=== PATIENT | female | born 1990 | race Caucasian/White ===

== ENCOUNTER 2017-03-02 17:25 | Emergency (ER) | payer SELFPAY ==
[~2017-03-02] VITALS: Ht 167.6 cm; Wt 79.4 kg
[2017-03-02 18:05] LABS: BASOPHILS # (AUTO) 0.1 /CMM (0.0-0.2); BASOPHILS % (AUTO) 0.7 % (0.0-2.0); EOSINOPHILS # (AUTO) 0.3 /CMM (0.0-0.7); EOSINOPHILS % (AUTO) 2.9 % (0.0-6.0); HEMATOCRIT 38 % (33-45); HEMOGLOBIN 12.4 g/dL (11.5-14.8); LYMPHOCYTES # (AUTO) 2.1 /CMM (0.8-4.8); LYMPHOCYTES % (AUTO) 22.6 % (20.0-44.0); MEAN CORPUSCULAR HEMOGLOBIN 24 PG (26.0-33.0); MEAN CORPUSCULAR HGB CONC 33 g/dl (31.0-36.0); MEAN CORPUSCULAR VOLUME 75 fL (82-100); MONOCYTES # (AUTO) 0.3 /CMM (0.1-1.30); NEUTROPHILS # (AUTO) 6.7 /CMM (1.8-8.9); NEUTROPHILS % (AUTO) 70.8 % (43.0-81.0); PLATELET COUNT (AUTO) 307 /CMM (150-450); RDW COEFFICIENT OF VARIATION 13.8 (11.5-15.0); WHITE BLOOD COUNT (AUTO) 9.5 K/uL (4.3-11.0)
[2017-03-02 18:08] LABS: CALCIUM, SERUM 9.1 mg/dL (8.5-10.1); CREATININE 0.9 mg/dL (0.6-1.3)
[2017-03-02 18:10] LABS: INR 0.93 (0.87-1.13); PROTHROMBIN TIME 9.7 SECS (9.5-12.7)
--- NOTE | 2017-03-02 18:26 | NUR ---
PT REC'D TO ER C/O BLOOD IN URINE PAIN07/11 SPEAKS TELUGU VSS
[2017-03-02 18:49] LABS: APPEARANCE,URINE Turbid (CLEAR); BILIRUBIN,URINE Negative (NEGATIVE); BLOOD, URINE Large Ery/uL (NEGATIVE); COLOR,URINE Red (YELLOW); KETONES,URINE Negative (NEGATIVE); LEUKOCYTE ESTERASE ,URINE Small (NEGATIVE); NITRITE, URINE Positive (NEGATIVE); PROTEIN,URINE >=300 mg/dl (NEGATIVE); UGLUCOSE >=1000 mg/dL (NEGATIVE); UROBILINOGEN,URINE 0.2 EU/dL (0.2)
[2017-03-02 18:53] LABS: ADD URINE CULTURE YES; BACTERIA,URINE None seen /HPF (None Seen); PREGNANCY TEST URINE QUAL NEGATIVE (NEGATIVE); RBC,URINE TOO NUMEROUS TO COUN /HPF (0-2); SQUAMOUS EPITHELIAL CELL,UR Few /HPF (None Seen)
[2017-03-02] MEDS ORDERED: IV NS 0.9% 2,000 ML ONE (19:09)
[2017-03-02] MEDS ORDERED: IV SET PRIMARY 1 EA INFUS.SET MC ONE ×2 (19:09→20:03)
[2017-03-02] MEDS ORDERED: INSULIN REGULAR, HUMAN 100 UNIT/ML 10 ML VIAL ONE (19:10)
[2017-03-02] MEDS: IV NS 0.9% 1,000 ML BAG IV ONE ×2 (19:10→19:11)
[2017-03-02] MEDS: INSULIN REGULAR, HUMAN 100 UNIT/ML 10 ML VIAL SQ ONE (19:12)
--- NOTE | 2017-03-02 19:13 | NUR ---
IV STARTED LEFT AC 20G IVP NS 1000CC BOLUS X2 INSULIN 393 NOTIFIFED REG 4 UNITS SQ RT DELTOID
--- NOTE | 2017-03-02 19:19 | NUR ---
CORRECTION LEFT AC 22 GIVP
--- NOTE | 2017-03-02 19:20 | NUR ---
Received patient in bed aaox4, no s/s of acute distress. Breathing even and unlabored. IV NS bolus ongoing, jaleel well. VSS. Comfort measures rendered. Will continue to monitor.
[2017-03-02] MEDS ORDERED: CEFTRIAXONE 1GM BAG (ER ONLY) 50 ML IV ONE (20:03)
[2017-03-02] MEDS: CEFTRIAXONE 1GM BAG (ER ONLY) 1 GM/50 ML PIGGYBACK IV ONE (20:10)
--- NOTE | 2017-03-02 21:18 | NUR ---
IV removed. Catheter intact and site benign. Pressure and 4x4 applied to site. No bleeding noted.
--- NOTE | 2017-03-02 21:19 | NUR ---
Patient discharged to home in stable condition. Written and verbal after care instructions given with staff Jeanna as lead technologist in cytogenetics. Patient verbalizes understanding of instruction. Patient is ambulatory with steady gait.
[2017-03-02 21:21] VITALS: BP 135/78
== END 2017-03-02 21:21 | disposition home or self-care (01) ==
LOC: ER 17:29
DX: R31.9 Hematuria, unspecified (principal); N39.0 Urinary tract infection, site not specified; E11.65 Type 2 diabetes mellitus with hyperglycemia; K85.90 Acute pancreatitis without necrosis or infection, unspecified
CPT/HCPCS: 36415; 80048-TC; 81000-TC; 82962-TC; 84703-TC; 85025-TC; 85610-TC; 87086-TC; A4606; J0696; J1815; J7030; Z7610